=== PATIENT | female | born 2005 | race African-American/Black ===

== ENCOUNTER 2024-03-14 20:31 | Emergency (ER) | payer SELFPAY ==
[2024-03-14] MEDS ORDERED: Dexamethasone 10 MG/ML VIAL ONE (23:05)
== END 2024-03-14 23:21 | disposition home or self-care (01) ==
LOC: CSHERS 20:31
DX: J02.9 Acute pharyngitis, unspecified (principal); B97.89 Other viral agents as the cause of diseases classified elsewhere; F17.290 Nicotine dependence, other tobacco product, uncomplicated; Z55.0 Illiteracy and low-level literacy
CPT/HCPCS: 87081; 87428; 87430; 99283; J1100